=== PATIENT | male | born 1965 | race Caucasian/White ===

== ENCOUNTER 2023-01-01 13:25 | Emergency (ER) | payer OTHER, SELFPAY ==
--- NOTE | ~2023-01-01 | XR_ITS ---
Indication: Cough EXAMINATION: 2 views of the chest and right ribs Comparison to splicing technician film from CT dated 11/22/2022. Findings; Low lung volumes. Mild basilar markings may be consistent with mild atelectasis versus developing areas of infiltrate. The cardiac silhouette is within normal limits. The hilar structures do not appear pathologically enlarged. 3 views of the right ribs does not demonstrate evidence for fracture. XR/XR ribs RT 2V IMPRESSION: No fracture. No underlying pneumothorax or effusion. Mild basilar atelectasis
--- NOTE | ~2023-01-01 | XR_ITS ---
Indication: Cough EXAMINATION: 2 views of the chest and right ribs Comparison to cash management officer film from CT dated 11/22/2022. Findings; Low lung volumes. Mild basilar markings may be consistent with mild atelectasis versus developing areas of infiltrate. The cardiac silhouette is within normal limits. The hilar structures do not appear pathologically enlarged. 3 views of the right ribs does not demonstrate evidence for fracture. XR/XR chest 2V IMPRESSION: No fracture. No underlying pneumothorax or effusion. Mild basilar atelectasis
--- NOTE | 2023-01-01 13:31 | ECG_ITS ---
Test Reason : chest pain Blood Pressure : / mmHG Vent. Rate : 062 BPM Atrial Rate : 062 BPM P-R Int : 204 ms QRS Dur : 092 ms QT Int : 424 ms P-R-T Axes : 011 -02 008 degrees QTc Int : 430 ms Normal sinus rhythm Normal ECG When compared with ECG of 01-JUN-2008 12:37, No significant change was found Referred By: Generic ED Physician Electronically Signed By:BHARATI COLE MD
[2023-01-01 13:40] VITALS: BP 133/92; PULSE 61; RESP 18; TEMP 36.2; O2SAT 96; BMI 33.0
--- NOTE | 2023-01-01 13:40 | ED.GENADULT ---
HPI - General Adult General Chief complaint: Upper Respiratory Symptoms <OLGA LIDIA Santana Last Filed: 01/01/23 13:41> Stated complaint: chest pain x2 week <OLGA LIDIA Santana Last Filed: 01/01/23 13:41> Time Seen by Provider: 01/01/23 13:54 <OLGA LIDIA Santana Last Filed: 01/01/23 13:41> Source: patient and RN notes reviewed <OLGA LIDIA Irving Last Filed: 01/01/23 18:02> Mode of arrival: ambulatory <OLGA LIDIA Irving Last Filed: 01/01/23 18:02> Limitations: no limitations <OLGA LIDIA Irving Last Filed: 01/01/23 18:02> History of Present Illness HPI narrative: This is 57-year-old male, with a past medical history of hypertension GERD, who presents to the emergency department today with complaints of cough and right sided back/rib pain x 2 weeks. Patient reports that 2 weeks ago he developed a sore throat, runny nose and nasal congestion. He reports that his symptoms started to improve about 1.5 weeks ago, as his sore throat resolved, but then his cough worsened and developed right sided rib pain. Denies shortness of breath, chest pain, palpitations, headaches, dizziness, abdominal pain, nausea, vomiting, or diarrhea. Denies any hematuria, urinary urgency or frequency. He has taken tylenol for his symptoms which has provided him with minimal relief. Denies sick contacts. Denies any lower extremity swelling, recent travels, surgery, hospitalizations, hx of blood clots, hx of cancer. No other complaints or concerns at this time. <OLGA LIDIA Irving Last Filed: 01/01/23 18:02> MD complaint: Cough <OLGA LIDIA Irving Last Filed: 01/01/23 18:02> Onset (ago): week(s) <OLGA LIDIA Irving Last Filed: 01/01/23 18:02> Radiation: non-radiation <OLGA LIDIA Irving Last Filed: 01/01/23 18:02> Severity: moderate <OLGA LIDAI Irving Last Filed: 01/01/23 18:02> Pain Consistency: constant <OLGA LIDIA Irving Last Filed: 01/01/23 18:02> Relieving factors: none <OLGA LIDIA Irving Last Filed: 01/01/23 18:02> Exacerbating factors: none <OLGA LIDIA Irving Last Filed: 01/01/23 18:02> Associated symptoms: cough <OLGA LIDIA Irving Last Filed: 01/01/23 18:02> Treatments prior to arrival: none <OLGA LIDIA Irving Last Filed: 01/01/23 18:02> Related Data Home medications: Previous Rx's Medication Instructions Recorded azithromycin 250 mg tablet See Rx Instructions PO .COMPLEX #6 01/01/23 tabs <OLGA LIDIA Santana Last Filed: 01/01/23 13:41> Allergies/adverse reactions: Allergies Allergy/AdvReac Type Severity Reaction Status Date / Time No Known Allergies Allergy Verified 01/01/23 13:40 <OLGA LIDIA Santana Last Filed: 01/01/23 13:41> Review of Systems Review of Systems: Constitutional: No Weight loss, No Fever, No Chills ENT/Mouth: No Ear Pain, No Nasal Congestion, No Sinus Pain, No Hoarseness, No sore throat, No Rhinorrhea, No Swallowing Difficulty Cardiovascular: No Chest Pain, No SOB Respiratory: +Cough, No Sputum, No Wheezing Gastrointestinal: No Nausea, No Vomiting, No Diarrhea, No Constipation, No Abdominal pain Genitourinary: No Dysuria, No Urinary Frequency, No Hematuria, No Urinary Incontinence/retention, No Urgency, No Flank Pain Musculoskeletal: No joint pain, No Myalgias, No Joint Swelling Skin: No Skin Lesions, No rash Neuro: No Weakness, No Numbness, No Paresthesias <OLGA LIDIA Irving Last Filed: 01/01/23 18:02> Yes all other systems are reviewed and are negative <OLGA LIDIA Irving Last Filed: 01/01/23 18:02> FOR[facility]LY [facility], [facility] Social History Social History: Social History Advance Directives: No Advance Directives Information Provided: No <OLGA LIDIA Santana Last Filed: 01/01/23 13:41> Physical Exam ED Vital Signs: Vital Signs - 24 hr 01/01/23 13:40 Temperature 97.1 F Pulse Rate 61 Respiratory Rate 18 Blood Pressure 133/92 H Pulse Oximetry 96 Oxygen Delivery Method Room Air BMI result Body Mass Index 33.0 <Hamida Longoria PA - Last Filed: 01/01/23 13:41> Vital Signs - 24 hr 01/01/23 13:40 Temperature 97.1 F Pulse Rate 61 Respiratory Rate 18 Blood Pressure 133/92 H Pulse Oximetry 96 Oxygen Delivery Method Room Air BMI result Body Mass Index 33.0 <Nieves Napier PA - Last Filed: 01/01/23 18:02> Const General: cooperative, comfortable and no acute distress <Nieves Napier PA - Last Filed: 01/01/23 18:02> Orientation/consciousness: patient oriented x3 <Nieves Napier PA - Last Filed: 01/01/23 18:02> Limitations: no limitations <Nieves Napier PA - Last Filed: 01/01/23 18:02> HENMT Head: Yes normal to inspection, Yes normocephalic and Yes atraumatic <Nieves Napier PA - Last Filed: 01/01/23 18:02> Ears: hearing grossly normal bilaterally <Nieves Napier PA - Last Filed: 01/01/23 18:02> General nose exam: Normal external nose present <Nieves Napier PA - Last Filed: 01/01/23 18:02> Face and sinus: Yes normal facial exam <Nieves Napier PA - Last Filed: 01/01/23 18:02> Mouth: Normal oral and palatal mucosa present, oropharynx normal and moist mucous membranes <Nieves Napier PA - Last Filed: 01/01/23 18:02> Throat: Yes posterior oropharynx normal <Nievesgloria Napier PA - Last Filed: 01/01/23 18:02> Eyes General: appearance normal, both eyes and all related structures <Nieves Napier PA - Last Filed: 01/01/23 18:02> Eyelids: Yes eyelids normal <Nievesgloria Napier PA - Last Filed: 01/01/23 18:02> Conjunctivae: conjunctivae normal <Nieves Napier PA - Last Filed: 01/01/23 18:02> Sclerae: sclerae normal <Nieves Karthikeyan [facility] Last Filed: 01/01/23 18:02> Pupils: Equal, round and reactive pupils present <Nieves Napier [facility] Last Filed: 01/01/23 18:02> EOM: EOMs intact bilaterally <Nieves Napier [facility] Last Filed: 01/01/23 18:02> Neck Neck: Yes normal visual inspection, Yes full ROM and Yes no lymphadenopathy <Nieves Napier [facility] Last Filed: 01/01/23 18:02> Lymphatic: no lymphadenopathy noted <Nieves Napier [facility] Last Filed: 01/01/23 18:02> Chest Other: Coarse lung sounds in the right lung base. <Nieves Napier [facility] Last Filed: 01/01/23 18:02> Chest palpation & inspection: normal inspection of the chest <Nieves Napier [facility] Last Filed: 01/01/23 18:02> Resp Other: Diminished lung sounds in the bilateral bases. No wheezes, rhonchi or rales. Right anterior and posterior ribs are nontender. No overlying ecchymosis, crepitus, step off or deformities. <Nieves Napier [facility] Last Filed: 01/01/23 18:02> Effort & Inspection: normal respiratory effort and able to speak in complete sentences <Nieves Napier [facility] Last Filed: 01/01/23 18:02> Auscultation: no crackles, no rales, no rhonchi and no wheezes <Nieves Napier [facility] Last Filed: 01/01/23 18:02> Cardio Rate: regular rate <Nieves Napier [facility] Last Filed: 01/01/23 18:02> Rhythm: regular rhythm <Nieves Napier [facility] Last Filed: 01/01/23 18:02> Heart sounds: S1 normal heart sound present and S2 normal heart sound present <Nieves Napier [facility] Last Filed: 01/01/23 18:02> GI Inspection: Yes normal to inspection <Nieves Napier [facility] Last Filed: 01/01/23 18:02> Skin General skin exam: no rashes or lesions noted <Nieves Hernandezluz [facility] Last Filed: 01/01/23 18:02> Trauma: no lacerations or abrasions <Nieves Napier PA - Last Filed: 01/01/23 18:02> Wounds: no wounds <Nieves Napier PA - Last Filed: 01/01/23 18:02> Neuro General: patient oriented x3 and moves all extremities <Nieves Napier PA - Last Filed: 01/01/23 18:02> Cranial nerves: Yes Equal, round and reactive pupils present <Nieves Napier PA - Last Filed: 01/01/23 18:02> Extrem General: Yes normal to inspection and Yes no calf tenderness <Nieves Napier PA - Last Filed: 01/01/23 18:02> Right upper extremity: normal to inspection <Nieves Napier PA - Last Filed: 01/01/23 18:02> Left upper extremity: normal to inspection <Nieves Napier PA - Last Filed: 01/01/23 18:02> Right lower extremity: normal to inspection <Nieves Napier PA - Last Filed: 01/01/23 18:02> Left lower extremity: normal to inspection <Nieves Napier PA - Last Filed: 01/01/23 18:02> Course Course Course Narrative: This is an RME: Additional HPI, ROS, PE not included below will be deferred to primary provider. 57-year-old male presents for evaluation of chest pressure secondary to chest congestion, cough this has been going on for 2 weeks. He tells me it has not been going away, it has been unchanged for the past 2 weeks. Not coughing anything up. Denies fevers, chills, shortness of breath, nausea, vomiting, headache, vision changes, dizziness, recent sick contacts. Has not taken home COVID test. Plan labs, imaging, viral test <Hamida Longoria PA - Last Filed: 01/01/23 13:41> Medical Decision Making Medical Decision Making MDM Narrative: 57-year-old male presenting to the emergency department today for evaluation of cough x2 weeks. Patient's symptoms started with a sore throat and nasal congestion which started to improve however about a week ago his symptoms worsen. On examination patient's vital signs within normal limits, patient afebrile. Pt has diminished lung sounds in BL lung bases, no wheezes, rhonchi or rales. Ribs are nontender, no step off, crepitus, or deformities. VSS. Troponin was ordered in triage, patient's symptoms ongoing for 2 weeks, has no chest pain but rather right sided rib pain, no need to do repeat troponin. Chest x-ray revealing No underlying pneumothorax or effusion. Mild basilar atelectasis , atelectasis vs developing areas of infiltrate. Due to patient's duration of symptoms, will treat as early pneumonia with Z-christiano. Advised to watch for any new or worsening symptoms. Encouraged to follow up with his PCP. Patient stable for discharge. <OLGA LIDIA Irving - Last Filed: 01/01/23 18:02> Differential Diagnosis Differential Diagnoses: The differential diagnosis associated with the presentation includes <OLGA LIDIA Irving - Last Filed: 01/01/23 18:02> Pneumonia, URI, bronchitis, influenza, covid, viral syndrome. <OLGA LIDIA Irving - Last Filed: 01/01/23 18:02> Admission/Observation Consideration of admission/observation: Escalation of care including admission/observation considered <OLGA LIDIA Irving - Last Filed: 01/01/23 18:02> Lab Data MDM Lab Attestation statement: I reviewed the patient's lab results. <OLGA LIDIA Irving Last Filed: 01/01/23 18:02> No leukocytosis, troponin 2.7, negative viral panel. <OLGA LIDIA Irving - Last Filed: 01/01/23 18:02> Result Diagrams: 01/01/23 13:52 01/01/23 13:52 <OLGA LIDIA Santana - Last Filed: 01/01/23 13:41> Labs: Lab Results 01/01/23 01/01/23 01/01/23 Range/Units 13:50 13:50 13:52 WBC 7.3 (4.8-10.8) X10*3/uL RBC 5.44 (4.60-5.80) X10*6/uL Hgb 16.7 (14.0-18.0) g/dl Hct 48.1 (42.0-52.0) % MCV 88.4 (80.0-98.0) fL MCH 30.7 (27.0-33.0) pg MCHC 34.7 (31.0-36.0) g/dl RDW 11.9 (11.0-16.0) % Plt Count 182 (160-400) X10*3/uL MPV 10.5 (9.4-12.4) fL Immature Gran % (Auto) 0.7 H (0.0-0.4) % Neut % (Auto) 59.6 (45-73) % Lymph % (Auto) 27.2 (20-40) % Chester % (Auto) 8.1 (2-11) % Eos % (Auto) 4.0 (0-4) % Baso % (Auto) 0.4 (0-2) % Lymph # (Auto) 2.0 (1.2-4.9) X10*3/uL Chester # (Auto) 0.6 (0.1-1.2) X10*3/uL Eos # (Auto) 0.3 (0.0-0.4) X10*3/uL Baso # (Auto) 0.0 (0.0-0.2) X10*3/uL Abs Immat Gran (auto) 0.05 H (0.00-0.03) X10*3/uL Absolute Neuts (auto) 4.3 (2.0-8.3) x10*3/uL Absolute Nucleated RBC 0.000 (0.0-0.012) X10*3/uL Nucleated RBC % (auto) 0.0 (0.0-0.2) /100WBC Sodium (135-145) mmol/L Potassium (3.3-5.1) mmol/L Chloride (96-108) mmol/L Carbon Dioxide (22-29) mmol/L Anion Gap (12-20) BUN (9-16) mg/dL Creatinine (0.5-1.4) mg/dL Estim Creat Clear Calc Estimated GFR Random Glucose (60-115) mg/dL Calcium (8.4-10.2) mg/dL Total Bilirubin (0.0-1.0) mg/dL AST (5-37) U/L ALT (0-40) U/L Alkaline Phosphatase (39-117) U/L Troponin I High Sens (<3.5-35.0) ng/L Total Protein (6.5-8.0) g/dL Albumin (3.5-5.0) g/dL COVID-19 ([facility]IO) Negative (Negative) COVID-19 Clin Com See Note Influenza Type A (FLAVIO) Negative (Negative) Influenza Type B (FLAVIO) Negative (Negative) Influenza A & B Note See Note 01/01/23 01/01/23 Range/Units 13:52 13:52 WBC (4.8-10.8) X10*3/uL RBC (4.60-5.80) X10*6/uL Hgb (14.0-18.0) g/dl Hct (42.0-52.0) % MCV (80.0-98.0) fL MCH (27.0-33.0) pg MCHC (31.0-36.0) g/dl RDW (11.0-16.0) % Plt Count (160-400) X10*3/uL MPV (9.4-12.4) fL Immature Gran % (Auto) (0.0-0.4) % Neut % (Auto) (45-73) % Lymph % (Auto) (20-40) % Chester % (Auto) (2-11) % Eos % (Auto) (0-4) % Baso % (Auto) (0-2) % Lymph # (Auto) (1.2-4.9) X10*3/uL Chester # (Auto) (0.1-1.2) X10*3/uL Eos # (Auto) (0.0-0.4) X10*3/uL Baso # (Auto) (0.0-0.2) X10*3/uL Abs Immat Gran (auto) (0.00-0.03) X10*3/uL Absolute Neuts (auto) (2.0-8.3) x10*3/uL Absolute Nucleated RBC (0.0-0.012) X10*3/uL Nucleated RBC % (auto) (0.0-0.2) /100WBC Sodium 141 (135-145) mmol/L Potassium 4.1 (3.3-5.1) mmol/L Chloride 108 (96-108) mmol/L Carbon Dioxide 26 (22-29) mmol/L Anion Gap 11 L (12-20) BUN 12 (9-16) mg/dL Creatinine 0.99 (0.5-1.4) mg/dL Estim Creat Clear Calc 99.5 Estimated GFR > 60 Random Glucose 105 (60-115) mg/dL Calcium 9.2 (8.4-10.2) mg/dL Total Bilirubin 1.0 (0.0-1.0) mg/dL AST 29 (5-37) U/L ALT 49 H (0-40) U/L Alkaline Phosphatase 86 (39-117) U/L Troponin I High Sens < 2.7 (<3.5-35.0) ng/L Total Protein 6.9 (6.5-8.0) g/dL Albumin 4.4 (3.5-5.0) g/dL COVID-19 ([facility]IO) (Negative) COVID-19 Clin Com Influenza Type A (FLAVIO) (Negative) Influenza Type B (FLAVIO) (Negative) Influenza A & B Note <OLGA LIDIA Santana - Last Filed: 01/01/23 13:41> Lab Results 01/01/23 01/01/23 01/01/23 Range/Units 13:50 13:50 13:52 WBC 7.3 (4.8-10.8) X10*3/uL RBC 5.44 (4.60-5.80) X10*6/uL Hgb 16.7 (14.0-18.0) g/dl Hct 48.1 (42.0-52.0) % MCV 88.4 (80.0-98.0) fL MCH 30.7 (27.0-33.0) pg MCHC 34.7 (31.0-36.0) g/dl RDW 11.9 (11.0-16.0) % Plt Count 182 (160-400) X10*3/uL MPV 10.5 (9.4-12.4) fL Immature Gran % (Auto) 0.7 H (0.0-0.4) % Neut % (Auto) 59.6 (45-73) % Lymph % (Auto) 27.2 (20-40) % Chester % (Auto) 8.1 (2-11) % Eos % (Auto) 4.0 (0-4) % Baso % (Auto) 0.4 (0-2) % Lymph # (Auto) 2.0 (1.2-4.9) X10*3/uL Chester # (Auto) 0.6 (0.1-1.2) X10*3/uL Eos # (Auto) 0.3 (0.0-0.4) X10*3/uL Baso # (Auto) 0.0 (0.0-0.2) X10*3/uL Abs Immat Gran (auto) 0.05 H (0.00-0.03) X10*3/uL Absolute Neuts (auto) 4.3 (2.0-8.3) x10*3/uL Absolute Nucleated RBC 0.000 (0.0-0.012) X10*3/uL Nucleated RBC % (auto) 0.0 (0.0-0.2) /100WBC Sodium (135-145) mmol/L Potassium (3.3-5.1) mmol/L Chloride (96-108) mmol/L Carbon Dioxide (22-29) mmol/L Anion Gap (12-20) BUN (9-16) mg/dL Creatinine (0.5-1.4) mg/dL Estim Creat Clear Calc Estimated GFR Random Glucose (60-115) mg/dL Calcium (8.4-10.2) mg/dL Total Bilirubin (0.0-1.0) mg/dL AST (5-37) U/L ALT (0-40) U/L Alkaline Phosphatase (39-117) U/L Troponin I High Sens (<3.5-35.0) ng/L Total Protein (6.5-8.0) g/dL Albumin (3.5-5.0) g/dL COVID-19 ([facility]IO) Negative (Negative) COVID-19 Clin Com See Note Influenza Type A (FLAVIO) Negative (Negative) Influenza Type B (FLAVIO) Negative (Negative) Influenza A & B Note See Note 01/01/23 01/01/23 Range/Units 13:52 13:52 WBC (4.8-10.8) X10*3/uL RBC (4.60-5.80) X10*6/uL Hgb (14.0-18.0) g/dl Hct (42.0-52.0) % MCV (80.0-98.0) fL MCH (27.0-33.0) pg MCHC (31.0-36.0) g/dl RDW (11.0-16.0) % Plt Count (160-400) X10*3/uL MPV (9.4-12.4) fL Immature Gran % (Auto) (0.0-0.4) % Neut % (Auto) (45-73) % Lymph % (Auto) (20-40) % Chester % (Auto) (2-11) % Eos % (Auto) (0-4) % Baso % (Auto) (0-2) % Lymph # (Auto) (1.2-4.9) X10*3/uL Chester # (Auto) (0.1-1.2) X10*3/uL Eos # (Auto) (0.0-0.4) X10*3/uL Baso # (Auto) (0.0-0.2) X10*3/uL Abs Immat Gran (auto) (0.00-0.03) X10*3/uL Absolute Neuts (auto) (2.0-8.3) x10*3/uL Absolute Nucleated RBC (0.0-0.012) X10*3/uL Nucleated RBC % (auto) (0.0-0.2) /100WBC Sodium 141 (135-145) mmol/L Potassium 4.1 (3.3-5.1) mmol/L Chloride 108 (96-108) mmol/L Carbon Dioxide 26 (22-29) mmol/L Anion Gap 11 L (12-20) BUN 12 (9-16) mg/dL Creatinine 0.99 (0.5-1.4) mg/dL Estim Creat Clear Calc 99.5 Estimated GFR > 60 Random Glucose 105 (60-115) mg/dL Calcium 9.2 (8.4-10.2) mg/dL Total Bilirubin 1.0 (0.0-1.0) mg/dL AST 29 (5-37) U/L ALT 49 H (0-40) U/L Alkaline Phosphatase 86 (39-117) U/L Troponin I High Sens < 2.7 (<3.5-35.0) ng/L Total Protein 6.9 (6.5-8.0) g/dL Albumin 4.4 (3.5-5.0) g/dL COVID-19 ([facility]) (Negative) COVID-19 Clin Com Influenza Type A (FLAVIO) (Negative) Influenza Type B (FLAVIO) (Negative) Influenza A & B Note <OLGA LIDIA Irving - Last Filed: 01/01/23 18:02> Independent Interpretation I performed an independent interpretation of an: Plain X-Ray <OLGA LIDIA Irving - Last Filed: 01/01/23 18:02> Interpretation: I reviewed the chest x-ray and agree with radiologist report. <OLGA LIDIA Irving Last Filed: 01/01/23 18:02> Radiology Impression Discussion of test interpretation with radiology: I have reviewed the radiologist's reading. <OLGA LIDIA Irving Last Filed: 01/01/23 18:02> Radiologist Impression: Indication: Cough EXAMINATION: 2 views of the chest and right ribs Comparison to certified medication aide film from CT dated 11/22/2022. Findings; Low lung volumes. Mild basilar markings may be consistent with mild atelectasis versus developing areas of infiltrate. The cardiac silhouette is within normal limits. The hilar structures do not appear pathologically enlarged. 3 views of the right ribs does not demonstrate evidence for fracture. XR/XR chest 2V IMPRESSION: No fracture. No underlying pneumothorax or effusion. ? Mild basilar atelectasis Dictated By: Zachariah Davidson MD <OLGA LIDIA Irving - Last Filed: 01/01/23 18:02> Prescription Management I considered prescription management with: Antibiotic <OLGA LIDIA Irving Last Filed: 01/01/23 18:02> Discharge Plan Discharge Clinical Impression: Upper respiratory infection, Atelectasis <OLGA LIDIA Santana Last Filed: 01/01/23 13:41> Patient Disposition: Home, Self-Care <OLGA LIDIA Santana Last Filed: 01/01/23 13:41> Instructions: Upper Respiratory Infection (ED) <OLGA LIDIA Santana Last Filed: 01/01/23 13:41> Additional Instructions: Your chest x-ray was reviewed as mild basilar markings may be consistent with mild atelectasis versus developing areas of infiltrate , which could suggest you are developing a pneumonia. Please take prescribed antibiotic as directed. Finish the entire course. Please take over the counter ibuprofen/tylenol as needed for symptomatic relief. If you develop any new or worsening symptoms, including but not limited to chest pain, shortness of breath, worsening cough, fevers, or any other concerning symptoms, please return for further evaluation. Follow up with your primary care physician. <OLGA LIDIA Santana - Last Filed: 01/01/23 13:41> Prescriptions: New azithromycin 250 mg tablet See Rx Instructions .ROUTE .COMPLEX Qty: 6 0RF Rx Instructions: For 250 mg dose pack: take 500 mg today (day 1), then 250 mg for 4 days (days 2-5) <OLGA LIDIA Santana - Last Filed: 01/01/23 13:41> Interventions: ED Discharge Assessment Last Done: 01/01/23 16:17 <OLGA LIDIA Santana - Last Filed: 01/01/23 13:41> Discharge Date/Time: 01/01/23 16:17 <OLGA LIDIA Santana - Last Filed: 01/01/23 13:41>
[2023-01-01 13:57] LABS: MANUAL DIFF FLAG NO
[2023-01-01 13:58] LABS: Basophils Percent Auto 0.4 % (0-2); Eosinophils Absolute Auto 0.3 X10*3/uL (0.0-0.4); Hematocrit 48.1 % (42.0-52.0); Hemoglobin 16.7 g/dl (14.0-18.0); Imm Gran Abs Auto 0.05 X10*3/uL (0.00-0.03); Imm Gran Pct Auto 0.7 % (0.0-0.4); Lymphocytes Percent Auto 27.2 % (20-40); Mean Corpuscular HGB Conc 34.7 g/dl (31.0-36.0); Mean Corpuscular Hemoglobin 30.7 pg (27.0-33.0); Mean Corpuscular Volume 88.4 fL (80.0-98.0); Mean Platelet Volume 10.5 fL (9.4-12.4); Monocytes Absolute Auto 0.6 X10*3/uL (0.1-1.2); Monocytes Percent Auto 8.1 % (2-11); Neutrophils Absolute Auto 4.3 x10*3/uL (2.0-8.3); Neutrophils Percent Auto 59.6 % (45-73); Platelet Count 182 X10*3/uL (160-400); Red Blood Count 5.44 X10*6/uL (4.60-5.80); Red Cell Distribution Width 11.9 % (11.0-16.0); White Blood Count 7.3 X10*3/uL (4.8-10.8)
[2023-01-01 14:12] LABS: COVID-19 Test Negative (Negative); IDNOW Serial# 08D9AD1C; IDNOW Serial# BCCEAD1C; Influenza A Negative (Negative); Influenza B2 Negative (Negative)
[2023-01-01 14:21] LABS: Alanine Aminotransferase 49 U/L (0-40); Albumin Level 4.4 g/dL (3.5-5.0); Alkaline Phosphatase 86 U/L (39-117); Anion Gap 11 (12-20); Aspartate Amino Transferase 29 U/L (5-37); Blood Urea Nitrogen 12 mg/dL (9-16); Calcium 9.2 mg/dL (8.4-10.2); Carbon Dioxide 26 mmol/L (22-29); Chloride 108 mmol/L (96-108); Creatinine Clr Calc Pharmacy 99.5; Estimated Glomerular Filt Rate > 60; Glucose Random 105 mg/dL (60-115); Potassium 4.1 mmol/L (3.3-5.1); Sodium 141 mmol/L (135-145); Total Protein 6.9 g/dL (6.5-8.0)
[2023-01-01 14:31] LABS: Troponin-I High Sensitivity < 2.7 ng/L (<3.5-35.0)
--- OUTSIDE RECORDS SUMMARY | 2023-01-01 14:36 | XMS_ITS | Continuity of Care Document ---
Author Name Unknown Organization [facility] ter Address [address] [place] [id number] Care Team Providers Care Wealth Management Consultant Name Role Phone Chanell Li MD Primary Care Physician Encounter [facility] Date(s): 04/20/20 - 04/20/[address] [id number]- [facility] Discharge Disposition: A-D/C Home Attending Physician: Brenna Lan DO Admitting Physician: Brenna Lan DO Referring Physician: Not on Staff, Referring MD Allergies, Adverse Reactions, Alerts Substance Reaction Severity Status NKA Active Medications atenolol 25 mg oral tablet 1 tablet, By Mouth, Daily, # 30 tablet, 0 Refills, Maintenance, 05/31/14 8:30:02, Tablet Start Date: 05/31/14 Status: Ordered omeprazole 40 mg oral enteric coated capsule 1 capsule, By Mouth, Daily, # 30 capsule, 0 Refills, Maintenance, 05/31/14 8:26:49, EC Capsule Start Date: 05/31/14 Status: Ordered sucralfate 1 gm oral tablet 1 Gm, 1, tablet, By Mouth, 2 times a day, # 28 tablet, Refills 0, Tot. Refills 0, Maintenance, 04/20/20 22:07:00 EDT, Route to Pharmacy Electronically, [facility][id number] Start Date: 04/20/20 Stop Date: 05/04/20 Status: Ordered Vital Signs Most recent to oldest [Reference Range]: 1 2 3 Oxygen Saturation [94-100 %] 95 % (04/20/20 10:12 PM) 97 % (04/20/20 8:18 PM) 98 % (04/20/20 5:35 PM) Pulse Rate [55-90 bpm] 54 bpm *L* (04/20/20 10:12 PM) 55 bpm (04/20/20 8:18 PM) 57 bpm (04/20/20 5:35 PM) Blood Pressure [90-138/55-84 mm Hg] 140/91mm Hg *H* (04/20/20 10:12 PM) 149/88mm Hg *H* (04/20/20 8:18 PM) 136/87mm Hg (04/20/20 5:35 PM) Respiratory Rate [16-30 br/min] 16 br/min (04/20/20 10:12 PM) 16 br/min (04/20/20 8:18 PM) 16 br/min (04/20/20 5:35 PM) Temperature [96.8-100.4 DegF] 98.1 DegF (04/20/20 10:12 PM) 98.3 DegF (04/20/20 8:18 PM) 98.6 DegF (04/20/20 5:35 PM) Mode of Delivery (Oxygen) Room air (04/20/20 10:12 PM) Room air (04/20/20 8:18 PM) Room air (04/20/20 5:35 PM) Blood pressure sites Arm, right (04/20/20 10:12 PM) Arm, left (04/20/20 8:18 PM) Arm, right (04/20/20 5:35 PM) Temperature Route Oral (04/20/20 10:12 PM) Oral (04/20/20 8:18 PM) Oral (04/20/20 5:35 PM) Social History Social History Type Response Smoking Status Never smoker entered on: 01/15/15 Sex
--- OUTSIDE RECORDS SUMMARY | 2023-01-01 14:36 | XMS_ITS | Continuity of Care Document ---
Author Name Unknown Organization [facility] ter Address [address] [place] [id number] Care Team Providers Care Candy Feeder Name Role Phone Chanell Li MD Primary Care Physician [phone] En[place] [facility] [place](s): 03/05/21 - 03/06/[address] [id number]- Encounter Diagnosis Epigastric burning sensation(Final) - 03/05/21 Discharge Disposition: A-D/C Home Attending Physician: Johnny Mcdonald MD Admitting Physician: Johnny Mcdonald MD Referring Physician: Not on Staff, Referring MD [...] tablet, Refills 0, Tot. Refills 0, Maintenance, 03/05/21 22:57:00 EDT, Route to Pharmacy Electronically, [id number] Start Date: 03/05/21 Stop Date: 03/19/21 Status: Ordered Results Radiology Reports * Exam Date Time Procedure Performing Provider Status 03/05/21 9:33 PM Chest 2 Views Frontal and Lat Rodney Kaur (Verified) Notes: (Chest 2 Views Frontal and Lat) Reason For Exam: Abdominal Pain RESULT: Chest 2 Views Frontal and Lat Chest 2 Views Frontal and Lat Hx of Present Illness: Pt reports constant diffuse burning abd pain x 5 days- rates 8 10- +body aches; no known fever; no n v; + non-bloody diarrhea but noted mucous in stool; Reason: Abdominal Pain; Clinical Question(s): Other:; Abd Free Air COMPARISON: 05/31/2014 FINDINGS: LINES AND TUBES: None. LUNGS AND PLEURA: Clear lungs. Normal pulmonary vascularity. No pleural effusion. No pneumothorax. HEART, MEDIASTINUM AND YESSICA: Unchanged. BONES AND SOFT TISSUES: No acute abnormality. IMPRESSION: No acute abnormality. WSN: [id number] Ordering Physician: Lili Neal Dictated By: Kaushal Barker MD Dictated Date/Time: 03/05/21 9:35 pm Reviewed By: Kaushal Barker MD Signed By: Kaushla Barker MD Signed Date/Time: 03/05/21 9:35 pm Transcribed By: ADEBAYO Transcribed Date/Time: 03/05/21 9:34 pm Vital Signs Most recent to oldest [Reference Range]: 1 2 3 Oxygen Saturation [94-100 %] 98 % (03/06/21 12:12 AM) 97 % (03/05/21 7:36 PM) 100 % (03/05/21 4:04 PM) Pulse Rate [55-90 bpm] 85 bpm (03/06/21 12:12 AM) 89 bpm (03/05/21 7:36 PM) 84 bpm (03/05/21 4:04 PM) Blood Pressure [90-138/55-84 mm Hg] 145/88mm Hg *H* (03/06/21 12:12 AM) 153/93mm Hg *H* (03/05/21 7:36 PM) 135/90mm Hg (03/05/21 4:04 PM) Respiratory Rate [16-30 br/min] 18 br/min (03/06/21 12:12 AM) 20 br/min (03/05/21 7:36 PM) 18 br/min (03/05/21 4:04 PM) Temperature [96.8-100.4 DegF] 99.1 DegF (03/06/21 12:12 AM) 99.2 DegF (03/05/21 7:36 PM) 98.4 DegF (03/05/21 4:04 PM) Mode of Delivery (Oxygen) Room air (03/06/21 12:12 AM) Room air (03/05/21 7:36 PM) Room air (03/05/21 4:04 PM) Blood pressure sites Arm, right (03/06/21 12:12 AM) Arm, left (03/05/21 7:36 PM) Arm, right (03/05/21 4:04 PM) Temperature Route Oral (03/06/21 12:12 AM) Oral (03/05/21 7:36 PM) Oral (03/05/21 4:04 PM) Social History Social History Type Response Smoking Status Never smoker entered on: 01/15/15 Sex
== END 2023-01-01 16:17 | disposition home or self-care (01) ==
PROVIDERS: Physician Assistant; Emergency Provider Emergency Medicine; PCP Internal Medicine
DX: J06.9 Acute upper respiratory infection, unspecified (principal); J98.11 Atelectasis; Z20.822 Contact with and (suspected) exposure to COVID-19; I10 Essential (primary) hypertension; K21.9 Gastro-esophageal reflux disease without esophagitis
CPT/HCPCS: 36415; 71046; 71100; 80053; 84484; 85025; 87502; 87635; 93005; 99283

== ENCOUNTER → 2023-11-18 07:56 | Outpatient (BNVA) | payer SELFPAY | PROVIDERS: PCP Internal Medicine; Visit Provider Internal Medicine | DX: Z02.79 Encounter for issue of other medical certificate (principal) ==

== ENCOUNTER 2025-03-17 18:59 | Emergency (ER) | payer OTHER, SELFPAY ==
--- NOTE | ~2025-03-17 | XR_ITS ---
CLINICAL HISTORY: PAIN 4 view, chest and right ribs Comparison: CR/SR - XR RIBS RT 2V - 01/01/23 14:45 EDT Findings: Bones intact. No dislocations. No fracture deformity. No pneumothorax. The lungs are unremarkable. IMPRESSION: 1. No acute fractures. This document has been electronically signed by: Sascha Grimaldo MD on 03/17/2025 20:06:59
[2025-03-17 19:09] VITALS: BP 114/72; PULSE 84; RESP 16; TEMP 36.1; O2SAT 96; BMI 32.8
--- NOTE | 2025-03-17 19:12 | ED.GENADULT ---
HPI - General Adult General Chief complaint: Abdominal Pain Stated complaint: right side pain under ribcage Time Seen by Provider: 03/17/25 21:19 History of Present Illness ED Provider: Christiano ENRIQUE narrative: The patient is a 59-year-old male who has had pain in his right upper quadrant for about 8 days. He says that the pain began the day after he did some heavy weightlifting at the gym. He lifted heavy weights and thinks he may have strained himself. He also says that at around that time he had had a door bus open onto his right side. He says that the bus was not moving and it was simply the opening action of the door in the bus that struck him. He thinks it is unlikely that that is the cause of the pain. He thinks the weightlifting is probably more likely the cause of the pain and he is worried he might have an abdominal wall hernia. He has had no nausea or vomiting. He has had no change in his bowel habits. He has had no fever, sweats, chills. Related Data Previous Rx's ?Medication ?Instructions ?Recorded azithromycin 250 mg tablet See Rx Instructions PO .COMPLEX #6 01/01/23 tabs ibuprofen 400 mg tablet 400 mg PO Q6H PRN pain #14 tabs 03/17/25 Allergies Allergy/AdvReac Type Severity Reaction Status Date / Time No Known Allergies Allergy Verified 03/17/25 19:11 Review of Systems Review of Systems: Yes all other systems are reviewed and are negative PMFSH Social History Social History Smoked in Last 30 Days: No Use of substances other than those prescribed or required for medical reasons: No Advance Directives: No Advance Directives Information Provided: No Do you have a plan to hurt others: No Plan Physical Exam ED Vital Signs: Vital Signs - 24 hr 03/17/25 19:09 03/17/25 21:37 Temperature 97.0 F 97.0 F Pulse Rate 84 84 Respiratory Rate 16 16 Blood Pressure 114/72 114/72 Pulse Oximetry 96 96 Oxygen Delivery Method Room Air Room Air BMI result Body Mass Index 32.8 Const Other: The patient is a 59-year-old male who was awake and alert. He does not appear acutely toxic or in distress. He seems to have discomfort with certain movements. Orientation/consciousness: patient oriented x3 HENMT Other: The face is symmetrical. Mucous membranes moist. Eyes Other: Pupils are round equal, conjunctivae are clear, extraocular movements intact Neck Neck: Yes normal visual inspection, Yes full ROM and Yes no lymphadenopathy Chest Other: There is some tenderness at the right lower costal margin. No subcutaneous emphysema. No crepitus. Resp Effort & Inspection: normal respiratory effort Auscultation: clear to auscultation bilaterally Cardio Rate: regular rate Rhythm: regular rhythm Heart sounds: S1 normal heart sound present and S2 normal heart sound present GI Other: There is some tenderness with the palpation of the right upper quadrant. This seems to be a very superficial tenderness. I do not appreciate any defect in the abdominal wall. No hernias appreciated. The abdomen is otherwise soft and nontender. Skin Other: The skin is dry and unremarkable Neuro General: patient oriented x3, gait normal, tone normal, moves all extremities, no focal motor deficits and CN's II-XI intact bilaterally Extrem Other: There is no calf swelling or tenderness. No asymmetry. No peripheral edema. Course Course Course Narrative: 03/17/251911 OLGA LIDIA Mosqueda This is a Rapid Medical Examination (RME) performed by Henna Kam PA-C in triage. Full HPI, ROS, assessment and treatment plan per primary provider in the Main ED. Hx: 59 yo M here for eval of right lower rib pain x8 days. may have gotten struck in that area with a bus door. not worse w/ eating. no other sx. PE/vitals: ttp of RUQ Plan: screening labs, XR Medications Administered Discontinued Medications Generic Name Dose Route Start Last Admin Trade Name Freq PRN Reason Stop Dose Admin Ibuprofen 400 mg 03/17/25 21:30 03/17/25 21:34 Ibuprofen 400 Mg Tablet PO 03/17/25 21:31 400 mg ONCE ONE Administration Medical Decision Making Medical Decision Making MDM Narrative: The patient is a 59-year-old male who has had right upper quadrant abdominal pain or right lower anterior chest pain for approximately 8 days. He says the pain began after he did some heavy weightlifting. He also says that at 1 point the door of a bus swung into his area of pain but he seems to describe this has a fairly trivial event. He has had no associated gastrointestinal symptoms such as nausea or vomiting or lack of appetite. He has had no change in his bowel habits, no change in his appetite or eating. The patient has a normal white count and differential. He has some minimal transaminitis but otherwise his metabolic panels are unremarkable. A chest x-ray with right ribs was ordered at triage as well as the blood work. Clinically the patient looks well. He is tender to superficial palpation in the region of the right upper quadrant and the right costal margin. Given the absence of any gastrointestinal or respiratory symptoms I think this is probably a musculoskeletal pain. I think probably related to his weight lifting at the gym. I think he probably strained an abdominal wall muscle. I do not appreciate any abdominal wall hernia which the patient was concerned about. He has no symptoms of an hernia. I think he may be discharged with instructions to use ibuprofen and Tylenol and avoid weight lifting. Follow up with PCP. Return if worse. Lab Data 03/17/25 19:33 03/17/25 19:33 Labs: Lab Results 03/17/25 Range/Units 19:33 WBC 6.2 (4.8-10.8) X10*3/uL RBC 4.91 (4.60-5.80) X10*6/uL Hgb 15.6 (14.0-18.0) g/dl Hct 44.3 (42.0-52.0) % MCV 90.2 (80.0-98.0) fL MCH 31.8 (27.0-33.0) pg MCHC 35.2 (31.0-36.0) g/dl RDW 12.2 (11.0-16.0) % Plt Count 180 (160-400) X10*3/uL MPV 10.4 (9.4-12.4) fL Immature Gran % (Auto) 0.3 (0.0-0.4) % Neut % (Auto) 57.3 (45-73) % Lymph % (Auto) 29.6 (20-40) % [place] % (Auto) 9.3 (2-11) % Eos % (Auto) 3.0 (0-4) % Baso % (Auto) 0.5 (0-2) % Lymph # (Auto) 1.9 (1.2-4.9) X10*3/uL [place] # (Auto) 0.6 (0.1-1.2) X10*3/uL Eos # (Auto) 0.2 (0.0-0.4) X10*3/uL Baso # (Auto) 0.0 (0.0-0.2) X10*3/uL Abs Immat Gran (auto) 0.02 (0.00-0.03) X10*3/uL Absolute Neuts (auto) 3.6 (2.0-8.3) x10*3/uL Absolute Nucleated RBC 0.000 (0.0-0.012) X10*3/uL Nucleated RBC % (auto) 0.0 (0.0-0.2) /100WBC Sodium 140 (135-145) mmol/L Potassium 3.8 (3.3-5.1) mmol/L Chloride 108 (96-108) mmol/L Carbon Dioxide 21 L (22-29) mmol/L Anion Gap 15 (12-20) BUN 14 (9-16) mg/dL Creatinine 0.99 (0.5-1.4) mg/dL Estim Creat Clear Calc 96.8 Estimated GFR > 60 Random Glucose 110 (60-115) mg/dL Calcium 9.1 (8.4-10.2) mg/dL Total Bilirubin 0.5 (0.0-1.0) mg/dL Direct Bilirubin 0.1 (0.0-0.5) mg/dL AST 41 H (5-37) U/L ALT 61 H (0-40) U/L Alkaline Phosphatase 99 (39-117) U/L Total Protein 7.1 (6.5-8.0) g/dL Albumin 4.4 (3.5-5.0) g/dL Discharge Plan Discharge Clinical Impression: Abdominal wall pain in right upper quadrant Patient Disposition: Home, Self-Care Additional Instructions: I think it is unlikely that the pain you are experiencing is a hernia pain. I think it is much more likely that this is a muscle strain pain. I think you have strained the muscles of your abdominal wall. Please use ibuprofen in addition to acetaminophen as needed for the pain. Avoid weight lifting and other straining exercises until you are feeling better. Contact your regular doctor's office for a follow up appointment in 1-2 weeks. Return to the emergency room if you feel significantly worse, especially if you develop a fever or vomiting. Prescriptions: New ibuprofen 400 mg tablet 400 mg PO Q6H PRN (Reason: pain) Qty: 14 0RF No Action azithromycin 250 mg tablet See Rx Instructions .ROUTE .COMPLEX Qty: 6 0RF Rx Instructions: For 250 mg dose pack: take 500 mg today (day 1), then 250 mg for 4 days (days 2-5) Referrals: Chanell Li MD [Primary Care Provider, Internal Medicine] Interventions: ED Discharge Assessment Last Done: 03/17/25 21:37 Discharge Date/Time: 03/17/25 21:38 Print Language: Nepali
[2025-03-17 19:43] LABS: MANUAL DIFF FLAG NO
[2025-03-17 19:45] LABS: Basophils Percent Auto 0.5 % (0-2); Eosinophils Absolute Auto 0.2 X10*3/uL (0.0-0.4); Hematocrit 44.3 % (42.0-52.0); Hemoglobin 15.6 g/dl (14.0-18.0); Imm Gran Abs Auto 0.02 X10*3/uL (0.00-0.03); Imm Gran Pct Auto 0.3 % (0.0-0.4); Lymphocytes Absolute Auto 1.9 X10*3/uL (1.2-4.9); Lymphocytes Percent Auto 29.6 % (20-40); Mean Corpuscular HGB Conc 35.2 g/dl (31.0-36.0); Mean Corpuscular Hemoglobin 31.8 pg (27.0-33.0); Mean Corpuscular Volume 90.2 fL (80.0-98.0); Mean Platelet Volume 10.4 fL (9.4-12.4); Monocytes Absolute Auto 0.6 X10*3/uL (0.1-1.2); Monocytes Percent Auto 9.3 % (2-11); Neutrophils Absolute Auto 3.6 x10*3/uL (2.0-8.3); Neutrophils Percent Auto 57.3 % (45-73); Platelet Count 180 X10*3/uL (160-400); Red Blood Count 4.91 X10*6/uL (4.60-5.80); Red Cell Distribution Width 12.2 % (11.0-16.0); White Blood Count 6.2 X10*3/uL (4.8-10.8)
[2025-03-17 20:03] LABS: Alanine Aminotransferase 61 U/L (0-40); Albumin Level 4.4 g/dL (3.5-5.0); Alkaline Phosphatase 99 U/L (39-117); Anion Gap 15 (12-20); Aspartate Amino Transferase 41 U/L (5-37); Bilirubin Direct 0.1 mg/dL (0.0-0.5); Bilirubin Total 0.5 mg/dL (0.0-1.0); Blood Urea Nitrogen 14 mg/dL (9-16); Calcium 9.1 mg/dL (8.4-10.2); Carbon Dioxide 21 mmol/L (22-29); Chloride 108 mmol/L (96-108); Creatinine Clr Calc Pharmacy 96.8; Estimated Glomerular Filt Rate > 60; Glucose Random 110 mg/dL (60-115); Potassium 3.8 mmol/L (3.3-5.1); Sodium 140 mmol/L (135-145); Total Protein 7.1 g/dL (6.5-8.0)
--- OUTSIDE RECORDS SUMMARY | 2025-03-17 20:34 | XMS_ITS | Clinical Summary ---
Author Organization [facility] Address [address] [place] [address] Phone Care Team Providers Care Neurology Manager Name Role Phone Chanell Li MD Primary Care Provider [phone] Allergies No known active allergies Medications omeprazole (PriLOSEC) [address] capsule Take 1 capsule (20 mg total) by mouth 1 (one) time each day. Do not crush or chew. 30 each 5 03/31/20 25 Active ondansetron ODT (ZOFRAN-ODT) 4 mg disintegrating tablet Let 1 tablet dissolve under the tongue three times daily as needed for nausea or vomiting. 10 tablet 5 03/08/20 25 Encounters Date Type Department Care Team Description 03/01/2025 1:28 PM EDT - 03/01/2025 5:50 PM EDT Emergency [facility] Emergency [address] [place] [address] Meseret De Jesus DO Generalized abdominal pain (Primary Dx) Discharge Disposition: Home or Self Care from Last 3 Months Medical History Medical History Date Comments Hypertension Social History Tobacco Use Types Packs/Day Years Used Date Smoking Tobacco: Never Smokeless Tobacco: Never Tobacco Cessation:Counseling Given: Not Answered Sex and Gender Information Value Date Recorded Sex Assigned at Not on file Legal Sex Male 8:47 AM EST Gender Identity Not on file Sexual Orientation Not on file Obstetrics History Last Filed Vital Signs Vital Sign Reading Time Taken Comments Blood Pressure 127/70 03/01/2025 4:44 PM EDT Pulse 67 03/01/2025 4:44 PM EDT Temperature 36.7 C (98.1 F) 03/01/2025 2:45 PM EDT Respiratory Rate 16 03/01/2025 4:44 PM EDT Oxygen Saturation 98% 03/01/2025 4:44 PM EDT Inhaled Oxygen Concentration - - Weight 104 kg (230 lb) 03/01/2025 11:43 AM EDT Height 177.8 cm (5' 10 ) 03/01/2025 11:43 AM EDT Body Mass Index 33 03/01/2025 11:43 AM EDT Plan of Treatment Health Maintenance Due Date Last Done Comments DTaP,Tdap,and Td Vaccines (1 - Tdap) 1984 Hepatitis B Vaccines (1 of 3 - 19+ 3-dose series) 1984 Pneumococcal Vaccine: 50+ Years (1 of 1 - PCV) 12/21/2015 Zoster Vaccines (1 of 2) 12/21/2015 Cholesterol Screening (Lipid Panel) 08/22/2022 Colorectal Cancer Screening: Colonoscopy 08/22/2022 Depression Screening 08/22/2022 HIV Screening 08/22/2022 Hepatitis C Screening 08/22/2022 Social Influencers of Health Screening 08/22/2022 COVID-19 Vaccine (3 - 2023-2 5 season) 2024 07/10/2021, 06/18/2021 Influenza Vaccine (Season Ended) 2025 RSV Immunization Adult Patients (1 - 1-dose 75+ series) 2040 HIB Vaccines Aged Out No longer eligi ble based on patient's age to complete this topic HPV Vaccines Aged Out No longer eligi ble based on patient's age to complete this topic Hepatitis A Vaccines Aged Out No long er eligible based on patient's age to complete this topic IPV Vaccines Aged Out No longer eligi ble based on patient's age to complete this topic MMR Vaccines Aged Out No longer eligi ble based on patient's age to complete this topic Meningococcal ACWY Vaccine Aged Out N o longer eligible based on patient's age to complete this topic Meningococcal B Vaccine Aged Out No l onger eligible based on patient's age to complete this topic Pneumococcal Vaccine: Pediatrics (0 to 5 Years) and At-Risk Patients (6 to 64 Years) Aged Out No longer eligible b ased on patient's age to complete this topic RSV Immunization Patients Under 20 months Aged Out No longer eligible b ased on patient's age to complete this topic Varicella Vaccines Aged Out No longer eligible based on patient's age to complete this topic Procedures Procedure Name Priority Date/Time Associated Diagnosis Comments CT ABDOMEN PELVIS W CONTRAST STAT 03/01/2025 3:48 PM EDT CBC WITH AUTO DIFFERENTIAL STAT 03/01/2025 11:45 AM EDT LIPASE STAT 03/01/2025 11:45 AM EDT COMPREHENSIVE METABOLIC PANEL STAT 03/01/2025 11:45 AM EDT CBC AND DIFFERENTIAL STAT 03/01/2025 11:45 AM EDT from Last 3 Months Results * CT Abdomen Pelvis w Contrast (03/01/2025 3:48 PM EDT) Anatomical Region Laterality Modality Body Computed Tomogra phy 03/01/2025 4:36 PM EDT Impressions 03/01/2025 4:39 PM EDT Bladder distention with prostatomegaly. No acute infectious or inflammatory process in the abdomen or pelvis. -------- FINAL REPORT -------- Dictated By: Nallely Cannon Dictated Date: 03/01/2025 16:36 ET Assigned Physician: Nallely Cannon Reviewed and Electronically Signed By: Nallely Cannon Signed Date: 03/01/2025 16:39 ET Workstation ID: [id number] Transcribed By: Self Edit Transcribed Date: 03/01/2025 16:36 ET Narrative 03/01/2025 4:39 PM EDT PROCEDURE: CT ABDOMEN/PELVIS WITH CONTRAST INDICATION: Abdominal pain, acute, nonlocalized TECHNIQUE: CT of the abdomen and pelvis following the intravenous administration of 90cc Isovue 370. Multiplanar reformats. The examination was performed utilizing dose reduction techniques. Total DLP 1238 COMPARISON: No priors available. FINDINGS: LOWER THORAX: Lung bases are clear. HEPATOBILIARY: Few tiny low-density lesions too small to characterize but presumably benign. No cholelithiasis or biliary duct dilatation. SPLEEN: No focal lesion. PANCREAS: No focal mass or ductal dilatation. ADRENALS: No nodules. KIDNEYS/URETERS: Mild fullness of both renal collecting systems. No ureteral calculus or lesion. PELVIC ORGANS/BLADDER: Bladder is distended with enlarged prostate noted. PERITONEUM / RETROPERITONEUM: Nonspecific peritoneal node in the left upper quadrant. No mass or adenopathy evident otherwise. VESSELS: No aneurysm or dissection. GI TRACT: No bowel distention or wall thickening. Normal appendix. BONES AND SOFT TISSUES: Scattered degenerative changes seen throughout the bones. Fat-containing inguinal hernias. Procedure Note Nallely Cannon MD - 03/01/2025 PROCEDURE: CT ABDOMEN/PELVIS WITH CONTRAST INDICATION: Abdominal pain, acute, nonlocalized TECHNIQUE: CT of the abdomen and pelvis following the intravenousadministration of 90cc Isovue 370. Multiplanar reformats. The examinationwas performed utilizing dose reduction techniques. Total DLP 1238 COMPARISON: No priors available. FINDINGS: LOWER THORAX: Lung bases are clear. HEPATOBILIARY: Few tiny low-density lesions too small to characterize butpresumably benign. No cholelithiasis or biliary duct dilatation. SPLEEN: No focal lesion. PANCREAS: No focal mass or ductal dilatation. ADRENALS: No nodules. KIDNEYS/URETERS: Mild fullness of both renal collecting systems. Noureteral calculus or lesion. PELVIC ORGANS/BLADDER: Bladder is distended with enlarged prostatenoted. PERITONEUM / RETROPERITONEUM: Nonspecific peritoneal node in the leftupper quadrant. No mass or adenopathy evident otherwise. VESSELS: No aneurysm or dissection. GI TRACT: No bowel distention or wall thickening. Normal appendix. BONES AND SOFT TISSUES: Scattered degenerative changes seen throughout thebones. Fat-containing inguinal hernias. IMPRESSION: Bladder distention with prostatomegaly. No acute infectious or inflammatory process in the abdomen or pelvis. -------- FINAL REPORT -------- Dictated By: Nallely Cannon Dictated Date: 03/01/2025 16:36 ET Assigned Physician: Nallely Cannon Reviewed and Electronically Signed By: Nallely Cannon Signed Date: 03/01/2025 16:39 ET Workstation ID: [id number] Transcribed By: Self Edit Transcribed Date: 03/01/2025 16:36 ET us Meseret De Jesus DO IMG CT PROCEDURES Final R esult * (ABNORMAL) CBC auto differential (03/01/2025 11:45 AM EDT) [facility] WBC 6.9 4.8 - 10.8 K/mcL LAB HEMETOLOGY METHOD [facility]2025 [facility] RBC 5.40 4.50 - 5.50 M/mcL LAB HEMETOLOGY METHOD 03/01/2025 12:33 [facility] Hemoglobin 16.6 13.5 - 17.5 g/dL LAB HEMETOLOGY METHOD 03/01/2025 12:33 PM [facility] Hematocrit 49.9 42.0 - 54.0 % LAB HEMETOLOGY METHOD 03/01/2025 12:33 PM [facility] MCV 92.1 79.0 - 98.0 FL LAB HEMETOLOGY METHOD 03/01/2025 12:33 [facility] MCH 30.6 27.0 - 32.0 pcg LAB HEMETOLOGY METHOD 03/01/2025 12:33 PM [facility] MCHC 33.3 32.0 - 37.0 g/dL LAB HEMETOLOGY METHOD 03/01/2025 12:33 PM [facility] RDW 12.2 11.0 - 15.0 % LAB HEMETOLOGY METHOD 03/01/2025 12:33 PM EDT [facility] Platelets 202 130 - 400 K/mcL LAB HEMETOLOGY METHOD 03/01/2025 12:33 PM [facility] MPV 11.1(H) 7.0 - 11.0 FL LAB HEMETOLOGY METHOD 03/01/2025 12:33 PM [facility] NRBC 0.0 <1.0 % LAB HEMETOLOGY METHOD 03/01/2025 12:[facility] NRBC Absolute 0.00 <0.10 K/mcL LAB HEMETOLOGY METHOD 03/01/2025 12:33 PM [facility] Neutrophils Relative 52.1 % LAB HEMETOLOGY METHOD 03/01/2025 12:33 PM [facility] Lymphocytes Relative 35.3 % LAB HEMETOLOGY METHOD 03/01/2025 12:33 PM [facility] Monocytes Relative 9.1 % LAB HEMETOLOGY METHOD 03/01/2025 12:33 PM [facility] Eosinophils Relative 2.5 % LAB HEMETOLOGY METHOD 03/01/2025 12:33 PM [facility] Basophils Relative 0.6 % LAB HEMETOLOGY METHOD 03/01/2025 12:33 PM [facility] Immature Granulocytes Relative 0.4 % LAB HEMETOLOGY METHOD 03/01/2025 12:33 PM [facility] Neutrophils Absolute 3.59 1.50 - 7.00 K/mcL LAB HEMETOLOGY METHOD 03/01/2025 12:33 PM [facility] Lymphocytes Absolute 2.43 1.00 - 5.00 K/mcL LAB HEMETOLOGY METHOD 03/01/2025 12:33 PM [facility] Monocytes Absolute 0.63 0.20 - 1.00 K/mcL LAB HEMETOLOGY METHOD 03/01/2025 12:33 PM [facility] Eosinophils Absolute 0.17 0.00 - 0.50 K/mcL LAB HEMETOLOGY METHOD 03/01/2025 12:33 PM [facility] Basophils Absolute 0.04 0.00 - 0.20 K/mcL LAB HEMETOLOGY METHOD 03/01/2025 12:33 PM [facility] Immature Granulocytes Absolute 0.03 0.00 - 0.03 K/mcL LAB HEMETOLOGY METHOD 03/01/2025 12:33 PM EDT [facility] Blood Venous blood specimen / Unknown Venipuncture / Unknown 03/01/2025 11:45 AM EDT 03/01/2025 12:20 PM EDT Meseret De Jesus LAB BLOOD ORDERABLES Isi l Result Performing Organization Address City/[facility]/ZIP Co de Phone Number [facility] [address] [place] [address], [place] [phone] * Lipase (03/01/2025 11:45 AM EDT) Pathologist [facility] [place] Lipase 36 13 - 75 unit/L LAB CHEMISTRY METHOD 03/01/2025 12:54 PM EDT [facility] Blood Venous blood specimen / Unknown Venipuncture / Unknown 03/01/2025 11:45 AM EDT 03/01/2025 12:20 PM EDT Meseret De Jesus LAB BLOOD ORDERABLES Isi l Result Performing Organization Address [facility]/ZIP Co de Phone Number [facility] [address] [place] [address], [place] [phone] * Comprehensive metabolic panel (03/01/2025 11:45 AM EDT) Pathologist [facility] [place] Sodium 140 133 - 145 mmol/L LAB CHEMISTRY METHOD 03/01/2025 12:54 PM EDT [facility] Potassium 4.2 3.5 - 5.5 mmol/L LAB CHEMISTRY METHOD 03/01/2025 12:54 PM EDT [facility] Chloride 106 96 - 110 mmol/L LAB CHEMISTRY METHOD 03/01/2025 12:54 PM EDT [facility] CO2 27 21 - 32 mmol/L LAB CHEMISTRY METHOD 03/01/2025 12:54 PM EDT [facility] Anion Gap 7 3 - 11 LAB CHEMISTRY METHOD 03/01/2025 12:54 PM [facility] Glucose 96 70 - 100 mg/dL LAB CHEMISTRY METHOD 03/01/2025 12:54 PM [facility] BUN 8 5 - 25 mg/dL LAB CHEMISTRY METHOD 03/01/2025 12:54 PM [facility] Creatinine 1.05 0.70 - 1.30 mg/dL LAB CHEMISTRY METHOD 03/01/2025 12:54 PM [facility] eGFR 82 >=60 mL/min/1. 73m2 LAB CHEMISTRY METHOD 03/01/2025 12:54 PM [facility] Comment:Calculation based on the Chronic Kidney Disease Epidemiology Collaboration (CKD-EPI) equation refit without adjustment for race. BUN/Creatinine Ratio 7.6 LAB CHEMISTRY METHOD 03/01/2025 12:54 PM [facility] Calcium 8.9 8.5 - 10.5 mg/dL LAB CHEMISTRY METHOD 03/01/2025 12:54 PM [facility] AST (SGOT) 31 10 - 42 unit/L LAB CHEMISTRY METHOD 03/01/2025 12:54 PM [facility] ALT (SGPT) 54 10 - 60 unit/L LAB CHEMISTRY METHOD 03/01/2025 12:54 PM [facility] Alkaline Phosphatase 94 42 - 121 unit/L LAB CHEMISTRY METHOD 03/01/2025 12:54 PM [facility] Total Protein 7.6 6.0 - 8.0 g/dL LAB CHEMISTRY METHOD 03/01/2025 12:54 PM [facility] Albumin 4.2 3.2 - 5.0 g/dL LAB CHEMISTRY METHOD 03/01/2025 12:54 PM [facility] Total Bilirubin 1.1 0.0 - 1.4 mg/dL LAB CHEMISTRY METHOD 03/01/2025 12:54 PM [facility] Blood Venous blood specimen / Unknown Venipuncture / Unknown 03/01/2025 11:45 AM EDT 03/01/2025 12:20 PM EDT us Meseret De Jesus DO LAB BLOOD ORDERABLES Isi l Result [facility] ([facility]) [facility] [address] [place] [address], from Last 3 Months Insurance Care Teams Neurology Manager Relationship Specialty Start Date End Date Chanell Li MD [address] [place] [phone] PCP - General Internal Medicine 03/01/25
[2025-03-17] MEDS: Ibuprofen 400 MG TABLET PO (21:34)
[2025-03-17 21:37] VITALS: BP 114/72; PULSE 84; RESP 16; TEMP 36.1; O2SAT 96
== END 2025-03-17 21:38 | disposition home or self-care (01) ==
PROVIDERS: Physician Assistant Medical; Emergency Provider Emergency Medicine; PCP Internal Medicine
DX: R10.11 Right upper quadrant pain (principal); R07.9 Chest pain, unspecified
CPT/HCPCS: 36415; 71101; 80048; 80076; 85025; 99283; 99284

== ENCOUNTER → 2025-03-17 19:11 | Outpatient (BNV) | payer OTHER, SELFPAY | PROVIDERS: PCP Internal Medicine; Visit Provider Radiology Diagnostic Radiology | DX: R07.89 Other chest pain (principal) | CPT/HCPCS: 71101 ==